=== PATIENT | female | born 1960 | race Caucasian/White ===

== ENCOUNTER → 2016-08-12 | Outpatient (CLI) | payer BC ==
--- NOTE | 2016-08-15 08:31 | MM ---
Reason for exam: clinical finding. Last mammogram was performed 3 years and 4 months ago. History: Family history of breast cancer in grandmother. Indicated problem(s): lump or thickening in the left breast. Physical Findings: Nurse did not find any significant physical abnormalities on exam. MG Diagnostic Mammo w CAD GARRY Bilateral CC and MLO view(s) were taken. Prior study comparison: April 16, 2013, CAD bilateral diagnostic mammogram. January 26, 2011, bilateral digital screening mammo w/CAD. The breast tissue is heterogeneously dense. This may lower the sensitivity of mammography. There is chronic nodularity in the left breast. No significant new findings when compared with previous films. These results were verbally communicated with the patient and result sheet given to the patient on 08/12/16. ASSESSMENT: Benign, BI-RAD 2 RECOMMENDATION: Routine screening mammogram of both breasts in 1 year. Manage patient on a clinical basis.
== END | disposition home or self-care (01) ==
LOC: RADMAMWWP 13:19
PROVIDERS: ATTEND Family Medicine
DX: N63 Unspecified lump in breast (principal)

== ENCOUNTER → 2022-12-22 | Outpatient (CLI) | payer BC ==
--- NOTE | 2022-12-22 15:42 | XR ---
EXAMINATION TYPE: XR clavicle LT DATE OF EXAM: 12/22/2022 3:27 PM INDICATION: Patient age:Female; 62 years old; Reason for study: M25.512; [facility]. COMPARISON: Chest radiograph 10/30/2013 TECHNIQUE: AP and cephalic tilt views were obtained of the left clavicle. FINDINGS: No evidence of acute or chronic osseous pathology, joint dislocation or soft tissue swelling. IMPRESSION: Normal left clavicle.
== END | disposition home or self-care (01) ==
LOC: RADXRMAIN 15:16
PROVIDERS: ATTEND Nurse Practitioner Family
DX: M25.512 Pain in left shoulder (principal)

== ENCOUNTER 2024-11-23 11:50 | Observation (INO) | payer BC, MEDICARE ==
--- NOTE | 2024-11-23 12:12 | ED ---
General Adult HPI - General Chief complaint: Neuro Symptoms/Deficit Stated complaint: confusion Time Seen by Provider: 11/23/24 12:00 Source: patient, family, RN notes reviewed Mode of arrival: wheelchair Limitations: no limitations - History of Present Illness Initial comments: Patient is a 64-year-old female presenting to the emergency department with concern for confusion. Onset was around a half an hour prior to arrival. Patient was doing fine prior to that. Patient arrives with family. Patient suddenly became confused, not knowing what day or week it was. Patient did not recall that they had a friend coming over or doing other activities this morning. Patient states she does not recall waking up this morning. Patient does not recall why she takes Eliquis or if she even took it today. Family states she takes this for A-fib. No slurred speech. No weakness. - Related Data Home Medications Medication Instructions Recorded Confirmed Levothyroxine Sodium [Synthroid] 100 mcg PO DAILY 02/11/14 11/23/24 Apixaban [Eliquis] 5 mg PO BID 11/23/24 11/23/24 Atorvastatin [Lipitor] 20 mg PO DAILY 11/23/24 11/23/24 Cider Vinegar [Apple Cider Vinegar] 300 mg PO DAILY 11/23/24 11/23/24 Echinacea(Unknown Dose) 1 cap PO DAILY 11/23/24 11/23/24 Magnesium(Unknown Dose) 1 tab PO DAILY 11/23/24 11/23/24 Meloxicam [Mobic] 15 mg PO DAILY PRN 11/23/24 11/23/24 Tart Mckenzie(Unknown Dose) 1 tab PO DAILY 11/23/24 11/23/24 Vitamin C(Unknown Dose) 1 tab PO DAILY 11/23/24 11/23/24 Allergies Allergy/AdvReac Type Severity Reaction Status Date / Time Penicillins Allergy Dyspnea Verified 11/23/24 13:20 Review of Systems ROS Statement: Those systems with pertinent positive or pertinent negative responses have been documented in the HPI. ROS Other: All systems not noted in ROS Statement are negative. Constitutional: Denies: fever Eyes: Denies: eye pain ENT: Denies: ear pain Respiratory: Denies: dyspnea Cardiovascular: Denies: chest pain Neurological: Reports: as per HPI, confusion. Denies: headache, weakness Past Medical History Past Medical History: Asthma, GERD/Reflux, GI Bleed, Hypertension Additional Past Medical History / Comment(s): HTN intermittent, Blood in stools History of Any Multi-Drug Resistant Organisms: None Reported Past Surgical History: Hysterectomy Past Anesthesia/Blood Transfusion Reactions: No Reported Reaction Past Alcohol Use History: Occasional Past Drug Use History: None Reported General Exam Limitations: no limitations General appearance: alert, in no apparent distress Head exam: Present: normocephalic Eye exam: Present: normal appearance, PERRL, EOMI ENT exam: Present: normal oropharynx Neck exam: Present: normal inspection Respiratory exam: Present: normal lung sounds bilaterally Cardiovascular Exam: Present: regular rate, normal rhythm GI/Abdominal exam: Present: soft. Absent: tenderness Extremities exam: Present: normal inspection. Absent: pedal edema, calf tenderness Neurological exam: Present: alert, CN II-XII intact. Absent: motor sensory deficit Expanded Neurological exam: Present: protecting the airway Patient oriented to: Present: person, place. Absent: time Speech: Present: fluid speech Cranial nerves: EOM's Intact: Normal Sensory exam: Upper Extremity Light Touch: Normal, Lower Extremity Light Touch: Normal Motor strength exam: RUE: 5, LUE: 5, RLE: 5, LLE: 5 Eye Response: (4) open spontaneously Motor Response: (6) obeys commands Verbal Response: (4) confused conversation Psychiatric exam: Present: normal affect, normal mood Skin exam: Present: normal color Course Vital Signs 11/23/24 11:51 Temperature 97.9 F Pulse Rate 65 Respiratory 17 Rate Blood Pressure 148/88 O2 Sat by Pulse 96 Oximetry EKG Findings - EKG Results: EKG: interpreted by ERMD (Precordial and inferior Q waves. Left axis. Nonspecific T wave), sinus rhythm Medical Decision Making - Medical Decision Making Was pt. sent in by a medical professional or institution (, PA, PRINTING PLATE SETTER, urgent care, hospital, or [facility]...) When possible be specific @ -No Did you speak to anyone other than the patient for history (EMS, parent, family, police, friend...)? What history was obtained from this source @ - is present and provides majority of history as patient is unable to Did you review nursing and triage notes (agree or disagree)? Why? @ -I reviewed and agree with nursing and triage notes Were old charts reviewed (outside hosp., previous admission, EMS record, old EKG, old radiological studies, urgent care reports/EKG's, [facility] records)? Report findings @ -No old charts were reviewed Differential Diagnosis (chest pain, altered mental status, abdominal pain women, abdominal pain men, vaginal bleeding, weakness, fever, dyspnea, syncope, headache, dizziness, GI bleed, back pain, seizure, CVA, palpatations, mental health, musculoskeletal)? @ -Differential Altered Mental Status: Hypoglycemia, DKA, hypercapnia, ETOH, overdose, CO poisoning, trauma, myxedema coma, HTN encephalopathy, infection, encephalitis, psychosis, intercranial hemorrhage, hepatic encephalopathy, meningitis, CVA, this is not meant to be an all-inclusive list EKG interpreted by me (3pts min.). @ -As above X-rays interpreted by me (1pt min.). @ -Chest x-ray shows no acute process CT interpreted by me (1pt min.). @ -CT scan of the brain without acute abnormality U/S interpreted by me (1pt. min.). @ -None done What testing was considered but not performed or refused? (CT, X-rays, U/S, labs)? Why? @ -None What meds were considered but not given or refused? Why? @ -Considered tenecteplase however patient did not have a clear-cut diagnosis of stroke. In addition patient is on Eliquis Did you discuss the management of the patient with other professionals (professionals i.e. , PA, PRINTING PLATE SETTER, lab, RT, psych nurse, health social work professor, business continuity coordinator, teacher, first officer and flight instructor, counter caser)? Give summary @ -No Was smoking cessation discussed for >3mins.? @ -No Was critical care preformed (if so, how long)? @ -No Were there social determinants of health that impacted care today? How? (Homelessness, low income, unemployed, alcoholism, drug addiction, transportation, low edu. Level, literacy, decrease access to med. care, prison, rehab)? @ -No Was there de-escalation of care discussed even if they declined (Discuss DNR or withdrawal of care, Hospice)? DNR status @ -No What co-morbidities impacted this encounter? (DM, HTN, Smoking, COPD, CAD, Canc er, CVA, ARF, Chemo, Hep., AIDS, mental health diagnosis, sleep apnea, morbid obesity)? @ -History of A-fib Was patient admitted / discharged? Hospital course, mention meds given and route, prescriptions, significant lab abnormalities, going to OR and other pertinent info. @ -Patient presents with sudden onset confusion and amnesia. Upon reevaluation symptoms have resolved. Patient does not recall anything during this episode and does not recall seeing me earlier. Patient will be admitted for neuroconsultation. There is concern for TIA versus transient global amnesia. Patient and family updated. Admission orders written. Undiagnosed new problem with uncertain prognosis? @ -No Drug Therapy requiring intensive monitoring for toxicity (Heparin, Nitro, Insulin, Cardizem)? @ -No Were any procedures done? @ -No Diagnosis/symptom? @ -Altered mental status Acute, or Chronic, or Acute on Chronic? @ -Acute Uncomplicated (without systemic symptoms) or Complicated (systemic symptoms)? @ -Default Side effects of treatment? @ -No Exacerbation, Progression, or Severe Exacerbation? @ -No Poses a threat to life or bodily function? How? (Chest pain, USA, NC, pneumonia, PE, COPD, DKA, ARF, appy, cholecystitis, CVA, Diverticulitis, Homicidal, Suicidal, threat to staff... and all critical care pts) @ -No - Lab Data Result diagrams: 11/23/24 12:24 11/23/24 12:24 Lab Results 11/23/24 11/23/24 11/23/24 Range/Units 12:24 12:24 12:29 WBC 5.74 (4.50-10.00) 10*3/uL RBC 4.82 (4.10-5.20) 10*6/uL Hgb 15.4 H (12.0-15.0) g/dL Hct 43.9 (37.2-46.3) % MCV 91.1 (80.0-97.0) fL MCH 32.0 (27.0-32.0) pg MCHC 35.1 (32.0-37.0) g/dL Plt Count 250 (140-440) 10*3/uL MPV 10.2 (9.5-12.2) fL Immature Gran % (Auto) 0.2 % Neutrophils % 63.2 % Lymphocytes % 24.4 % Monocytes % 9.4 % Eosinophils % 2.3 % Basophils % 0.5 % Immature Gran # 0.01 (0.00-0.04) 10*3/uL Neutrophils # 3.63 (1.80-7.70) 10*3/uL Lymphocytes # 1.40 (0.90-5.00) 10*3/uL Monocytes # 0.54 (0.20-1.00) 10*3/uL Eosinophils # 0.13 (0.04-0.35) 10*3/uL Basophils # 0.03 (0.00-0.10) 10*3/uL PT (10.0-12.5) sec INR (<1.2) APTT (22.0-30.0) sec Sodium 138 (137-145) mmol/L Potassium 4.3 (3.5-5.1) mmol/L Chloride 104 (98-107) mmol/L Carbon Dioxide 24 (22-30) mmol/L Anion Gap 10 mmol/L BUN 16 (7-17) mg/dL Creatinine 0.83 (0.52-1.04) mg/dL Est GFR (CKD-EPI)AfAm 86 (>60 ml/min/1.73 sqM) Est GFR (CKD-EPI)NonAf 75 (>60 ml/min/1.73 sqM) Glucose 94 (74-99) mg/dL POC Glucose (mg/dL) 92 (70-110) mg/dL POC Glu Medical Sales Representative ID ESAU JAMA Calcium 9.6 (8.4-10.2) mg/dL Total Bilirubin 1.1 (0.2-1.3) mg/dL AST 22 (14-36) U/L ALT 19 (4-34) U/L Alkaline Phosphatase 69 (38-126) U/L Total Protein 7.0 (6.3-8.2) g/dL Albumin 4.3 (3.5-5.0) g/dL Urine Opiates Screen (NotDetected) Ur Oxycodone Screen (NotDetected) Urine Methadone Screen (NotDetected) Ur Barbiturates Screen (NotDetected) U Tricyclic Antidepress (NotDetected) Ur Phencyclidine Scrn (NotDetected) Ur Amphetamines Screen (NotDetected) U Methamphetamines Scrn (NotDetected) U Benzodiazepines Scrn (NotDetected) Urine Cocaine Screen (NotDetected) U Marijuana (THC) Screen (NotDetected) 11/23/24 11/23/24 Range/Units 12:43 12:54 WBC (4.50-10.00) 10*3/uL RBC (4.10-5.20) 10*6/uL Hgb (12.0-15.0) g/dL Hct (37.2-46.3) % MCV (80.0-97.0) fL MCH (27.0-32.0) pg MCHC (32.0-37.0) g/dL Plt Count (140-440) 10*3/uL MPV (9.5-12.2) fL Immature Gran % (Auto) % Neutrophils % % Lymphocytes % % Monocytes % % Eosinophils % % Basophils % % Immature Gran # (0.00-0.04) 10*3/uL Neutrophils # (1.80-7.70) 10*3/uL Lymphocytes # (0.90-5.00) 10*3/uL Monocytes # (0.20-1.00) 10*3/uL Eosinophils # (0.04-0.35) 10*3/uL Basophils # (0.00-0.10) 10*3/uL PT 10.6 (10.0-12.5) sec INR 0.9 (<1.2) APTT 28.0 (22.0-30.0) sec Sodium (137-145) mmol/L Potassium (3.5-5.1) mmol/L Chloride (98-107) mmol/L Carbon Dioxide (22-30) mmol/L Anion Gap mmol/L BUN (7-17) mg/dL Creatinine (0.52-1.04) mg/dL Est GFR (CKD-EPI)AfAm (>60 ml/min/1.73 sqM) Est GFR (CKD-EPI)NonAf (>60 ml/min/1.73 sqM) Glucose (74-99) mg/dL POC Glucose (mg/dL) (70-110) mg/dL POC Glu Medical Sales Representative ID Calcium (8.4-10.2) mg/dL Total Bilirubin (0.2-1.3) mg/dL AST (14-36) U/L ALT (4-34) U/L Alkaline Phosphatase (38-126) U/L Total Protein (6.3-8.2) g/dL Albumin (3.5-5.0) g/dL Urine Opiates Screen Not Detected (NotDetected) Ur Oxycodone Screen Not Detected (NotDetected) Urine Methadone Screen Not Detected (NotDetected) Ur Barbiturates Screen Not Detected (NotDetected) U Tricyclic Antidepress Not Detected (NotDetected) Ur Phencyclidine Scrn Not Detected (NotDetected) Ur Amphetamines Screen Not Detected (NotDetected) U Methamphetamines Scrn Not Detected (NotDetected) U Benzodiazepines Scrn Not Detected (NotDetected) Urine Cocaine Screen Not Detected (NotDetected) U Marijuana (THC) Screen Not Detected (NotDetected) Disposition Clinical Impression: Altered mental status Disposition: ADMITTED IP TO THIS HOSP Is patient prescribed a controlled substance at d/c from ED?: No Referrals: Vern Lai DO [Primary Care Provider] - 1-2 days Time of Disposition: 13:25
[2024-11-23 12:30] LABS: Glucose,Whole Blood 92 mg/dL (70-110)
[2024-11-23 12:36] LABS: Basophils # (A) 0.03 10*3/uL (0.00-0.10); Basophils % (A) 0.5 %; Eosinophils # (A) 0.13 10*3/uL (0.04-0.35); Eosinophils % (A) 2.3 %; HCT 43.9 % (37.2-46.3); HGB 15.4 g/dL (12.0-15.0); Lymphocytes % (A) 24.4 %; MCHC 35.1 g/dL (32.0-37.0); MCV 91.1 fL (80.0-97.0); Mean Platelet Volume 10.2 fL (9.5-12.2); Monocytes # (A) 0.54 10*3/uL (0.20-1.00); Monocytes % (A) 9.4 %; Neutrophils # (A) 3.63 10*3/uL (1.80-7.70); Neutrophils % (A) 63.2 %; Platelet Count 250 10*3/uL (140-440); RBC 4.82 10*6/uL (4.10-5.20); RDW 12.2 % (11.5-14.5); WBC 5.74 10*3/uL (4.50-10.00)
[2024-11-23 12:45] LABS: African American GFR (CKD) 86 (>60 ml/min/1.73 sqM); Anion Gap 10 mmol/L; Blood Urea Nitrogen 16 mg/dL (7-17); Carbon Dioxide 24 mmol/L (22-30); Chloride 104 mmol/L (98-107); Glucose 94 mg/dL (74-99); Potassium 4.3 mmol/L (3.5-5.1); Sodium 138 mmol/L (137-145)
[2024-11-23 12:46] LABS: ALT 19 U/L (4-34); AST 22 U/L (14-36); Albumin 4.3 g/dL (3.5-5.0); Alkaline Phosphatase 69 U/L (38-126); Calcium 9.6 mg/dL (8.4-10.2); Non-African American GFR(CKD) 75 (>60 ml/min/1.73 sqM); Total Bilirubin 1.1 mg/dL (0.2-1.3)
--- NOTE | 2024-11-23 12:57 | XR ---
EXAMINATION TYPE: XR chest 2V DATE OF EXAM: 11/23/2024 12:52 PM COMPARISON: Chest radiographs from 10/30/2013. CLINICAL INDICATION: Female, 64 years old with history of altered mental status; [facility] TECHNIQUE: XR chest 2V Frontal and lateral views of the chest. FINDINGS: Lungs/Pleura: There is no evidence of pleural effusion, focal consolidation, or pneumothorax. Pulmonary vascularity: Unremarkable. Heart/mediastinum: Cardiomediastinal silhouette is unremarkable. Musculoskeletal: No acute osseous pathology. Other findings: None IMPRESSION: No acute cardiopulmonary disease/process. [facility], , 11/23/2024 12:55 PM
--- NOTE | 2024-11-23 12:57 | CT ---
EXAMINATION TYPE: CT brain wo con DATE OF EXAM: 11/23/2024 12:48 PM COMPARISON: None. CLINICAL INDICATION: Female, 64 years old with history of Altered mental status, CONFUSION TECHNIQUE: Brain: Axial CT images of the brain were obtained with coronal and sagittal reformats created and rev iewed. Contrast used: None. Oral contrast used: None. CT DLP: 1156.8 mGycm, Automated exposure control for dose reduction was used. FINDINGS: Brain: Extra-axial spaces: No abnormal extra-axial fluid collections. Ventricular system: Within normal limits Cerebral parenchyma: No acute intraparenchymal hemorrhage or mass effect. The michael-white junction is well differentiated. Cerebellum: Unremarkable. Mass effect: No evidence of midline shift. Intracranial vasculature: unremarkable Soft tissues: Normal. Calvarium/osseous structures: No depressed skull fracture. Paranasal sinuses and mastoid air cells: Mild scattered paranasal sinus disease. Visualized orbits: Orbital contents are intact. IMPRESSION: No acute intracranial process. [facility], , 11/23/2024 12:54 PM
[2024-11-23 13:12] LABS: Amphetamine Screen,Urine Not Detected (NotDetected); Barbiturate Screen,Urine Not Detected (NotDetected); Benzodiazepines Screen,Urine Not Detected (NotDetected); Cocaine Screen,Urine Not Detected (NotDetected); Methadone Screen, Urine Not Detected (NotDetected); Opiate Screen,Urine Not Detected (NotDetected); Oxycodone Screen, Urine Not Detected (NotDetected); Phencyclidine Screen,Urine Not Detected (NotDetected); Tricyclic Antidepressant,Urine Not Detected (NotDetected); Urn Cannabinoid Scrn Not Detected (NotDetected)
[2024-11-23 13:12] LABS: INR 0.9 (<1.2); Prothrombin Time 10.6 sec (10.0-12.5)
[2024-11-23] MEDS: ASPIRIN 325 MG TAB PO STA (13:35)
[2024-11-23] MEDS: SODIUM CHLORIDE 0.9% 1,000 ML IV SCH (13:35)
--- NOTE | 2024-11-23 15:33 | US ---
EXAMINATION TYPE: US carotid duplex BILAT DATE OF EXAM: 11/23/2024 COMPARISON: NONE CLINICAL INDICATION: Female, 64 years old with history of Stenosis; TIA Additional History: .... TECHNIQUE: Grayscale, color Doppler and spectral Doppler evaluation of the bilateral carotid systems and vertebral arteries. Indirect Doppler criteria was utilized. FINDINGS: EXAM MEASUREMENTS: RIGHT: Peak Systolic Velocity (PSV) cm/sec ----- Right CCA: 74.1 ----- Right ICA: 101 ----- Right ECA: 92.9 ICA/CCA ratio: 1.4 RIGHT: End Diastole cm/sec ----- Right CCA: 18.2 ----- Right ICA: 32.5 ----- Right ECA: 13 LEFT: Peak Systolic Velocity (PSV) cm/sec ----- Left CCA: 88.3 ----- Left ICA: 91.6 ----- Left ECA: 105 ICA/CCA ratio: 1.0 LEFT: End Diastole cm/sec ----- Left CCA: 20.8 ----- Left ICA: 33.1 ----- Left ECA: 14.9 VERTEBRALS (direction of flow): Right Vertebral: Antegrade Left Vertebral: Antegrade Rhythm: Normal COMPTOMETER OPERATOR NOTES: No significant stenosis seen Color Doppler imaging shows patency with blood flow throughout the carotid artery. Spectral waveforms are within normal limits. IMPRESSION: Right: No hemodynamically significant stenosis. Left: No hemodynamically significant stenosis. Criteria for Assigning % of Stenosis / Diameter reduction (Estimation based on the indirect measurements of the internal carotid artery velocities (ICA PSV). 1. Normal (no stenosis)=ICA PSV < 180 cm/s: ratio < 2.0: ICA EDV<40 cm/s. 2. Less than 50% stenosis=ICA PSV < 180 cm/s: ratio < 2.0: ICA EDV<40 cm/s. 3. 50 to 69% stenosis=ICA PSV of 180 to 230 cm/s: ration 2.0 ? 4.0: ICA EDV 40-100 cm/s. PSV 125-180 cm/sec and ICA/CCA PSV Ratio ? 2.0 is also consistent with 50-69% stenosis 4. Greater than 70% stenosis to near occlusion= ICA PSV > 230 cm/s: ratio > 4.0: ICA EDV > 100 cm/s. 5. Near occlusion= ICA PSV velocities may be low or undetectable: variable ratio and ICA EDV. 6. Total occlusion=unable to detect flow. [facility], , 11/23/2024 3:31 PM
[2024-11-23] MEDS: APIXABAN 5 MG TAB PO SCH (21:13)
[2024-11-24 06:08] LABS: Glucose,Whole Blood 96 mg/dL (70-110)
[2024-11-24] MEDS: ASCORBIC ACID 500 MG TAB PO SCH (08:26)
[2024-11-24] MEDS: MAGNESIUM OXIDE 400 MG TAB PO SCH (08:26)
[2024-11-24] MEDS: LEVOTHYROXINE 100 MCG TAB PO SCH (08:26)
[2024-11-24] MEDS: ATORVASTATIN 20 MG TAB PO SCH (08:26)
[2024-11-24] MEDS ORDERED: NON FORMULARY DRUG (Cider Vinegar [Apple Cider Vinegar] 300 MG Tablet) PO SCH (09:00)
[2024-11-24 09:56] LABS: Basophils # (A) 0.05 X 10*3/uL (0.00-0.10); Basophils % (A) 0.7 %; HGB 13.3 g/dL (12.0-15.0); Lymphocytes # (A) 2.37 X 10*3/uL (0.90-5.00); Lymphocytes % (A) 35.3 %; MCH 30.5 pg (27.0-32.0); MCHC 32.4 g/dL (32.0-37.0); Mean Platelet Volume 10.9 FL (9.5-12.2); Monocytes # (A) 0.61 X 10*3/uL (0.20-1.00); Monocytes % (A) 9.1 %; NRBC Per 100 WBC 0 X 10*3/uL (0.00-0.01); Neutrophils # (A) 3.48 X 10*3/uL (1.80-7.70); Neutrophils % (A) 51.8 %; Platelet Count 233 X 10*3/uL (140-440); RBC 4.36 X 10*6/uL (4.10-5.20); RDW 12.4 % (11.5-14.5); WBC 6.72 X 10*3/uL (4.50-10.00)
[2024-11-24 10:32] LABS: BUN/Creat Ratio 16.11 Ratio (12.00-20.00); Blood Urea Nitrogen 14.5 mg/dL (9.0-27.0); Calcium 8.5 mg/dL (8.7-10.3); Carbon Dioxide 23.8 mmol/L (21.6-31.8); Chloride 107 mmol/L (96-109); Glucose 93 mg/dL (70-110); Potassium 4.2 mmol/L (3.5-5.5); Sodium 141 mmol/L (135-145); VLDL Calculation 15.32 mg/dL (5.00-40.00)
[2024-11-24] MEDS: ASPIRIN 325 MG TAB PO SCH (11:16)
--- NOTE | 2024-11-24 12:41 | P.HPIM ---
History of Present Illness H&P Date: 11/23/24 Chief Complaint: Confusion 64-year-old female presenting to the emergency department with concern for confusion. Onset was around a half an hour prior to arrival. Patient was doing fine prior to that. Patient arrives with family. Patient suddenly became confused, not knowing what day or week it was. Patient did not recall that they had a friend coming over or doing other activities this morning. Patient states she does not recall waking up this morning. Patient does not recall why she takes Eliquis or if she even took it today. Family states she takes this for A- fib. No slurred speech. No weakness. CT of the head completed in ED is negative for any acute intracranial abnormality EKG shows normal sinus rhythm Chest x-ray is negative for any acute pulmonary process Blood work reveals WBC 5.7, hemoglobin of 15.4 and platelet count of 250, sodium 138, potassium 4.3, BUN/creatinine of 16/0.83; urine drug screen is negative Patient is being admitted for further neurology evaluation Review of Systems REVIEW OF SYSTEMS: CONSTITUTIONAL: No fever, no malaise, no fatigue. HEENT: No recent visual problems or hearing problems. Denied any sore throat. CARDIOVASCULAR: No chest pain, orthopnea, PND, no palpitations, no syncope. PULMONARY: No shortness of breath, no cough, no hemoptysis. GASTROINTESTINAL: No diarrhea, no nausea, no vomiting, no abdominal pain. NEUROLOGICAL: No headaches, no weakness, no numbness. HEMATOLOGICAL: Denies any bleeding or petechiae. GENITOURINARY: Denies any burning micturition, frequency, or urgency. MUSCULOSKELETAL/RHEUMATOLOGICAL: Denies any joint pain, swelling, or any muscle pain. ENDOCRINE: Denies any polyuria or polydipsia. The rest of the 14-point review of systems is negative. Past Medical History Past Medical History: Asthma, GERD/Reflux, GI Bleed, Hypertension Additional Past Medical History / Comment(s): HTN intermittent, Blood in stools History of Any Multi-Drug Resistant Organisms: None Reported Past Surgical History: Hysterectomy Past Anesthesia/Blood Transfusion Reactions: No Reported Reaction Past Alcohol Use History: Occasional Past Drug Use History: None Reported Medications and Allergies Home Medications Medication Instructions Recorded Confirmed Type Levothyroxine Sodium [Synthroid] 100 mcg PO DAILY 02/11/14 11/23/24 History Apixaban [Eliquis] 5 mg PO BID 11/23/24 11/23/24 History Atorvastatin [Lipitor] 20 mg PO DAILY 11/23/24 11/23/24 History Cider Vinegar [Apple Cider Vinegar] 300 mg PO DAILY 11/23/24 11/23/24 History Echinacea(Unknown Dose) 1 cap PO DAILY 11/23/24 11/23/24 History Magnesium(Unknown Dose) 1 tab PO DAILY 11/23/24 11/23/24 History Meloxicam [Mobic] 15 mg PO DAILY PRN 11/23/24 11/23/24 History Tart Mckenzie(Unknown Dose) 1 tab PO DAILY 11/23/24 11/23/24 History Vitamin C(Unknown Dose) 1 tab PO DAILY 11/23/24 11/23/24 History Allergies Allergy/AdvReac Type Severity Reaction Status Date / Time Penicillins Allergy Dyspnea Verified 11/23/24 13:20 Physical Exam Vitals: Vital Signs Temp Pulse Resp BP Pulse Ox 11/23/24 15:17 57 L 18 142/82 96 11/23/24 13:41 64 18 137/97 96 11/23/24 11:51 97.9 F 65 17 148/88 96 Intake and Output 11/23/24 11/23/24 11/23/24 06:59 14:59 22:59 Other: Weight 86.183 kg General appearance: alert, in no apparent distress Head exam: Present: normocephalic Eye exam: Present: normal appearance, PERRL, EOMI ENT exam: Present: normal oropharynx Neck exam: Present: normal inspection Respiratory exam: Present: normal lung sounds bilaterally Cardiovascular Exam: Present: regular rate, normal rhythm GI/Abdominal exam: Present: soft. Absent: tenderness Extremities exam: Present: normal inspection. Absent: pedal edema, calf tenderness Neurological exam: Present: alert, CN II-XII intact. Absent: motor sensory deficit Speech: Present: fluid speech Sensory exam: Upper Extremity Light Touch: Normal, Lower Extremity Light Touch: Normal Motor strength exam: RUE: 5, LUE: 5, RLE: 5, LLE: 5 Psychiatric exam: Present: normal affect, normal mood Skin exam: Present: normal color Results CBC & Chem 7: 11/24/24 03:24 11/24/24 03:24 Labs: Abnormal Lab Results - Last 24 Hours (Table) 11/23/24 Range/Units 12:24 Hgb 15.4 H (12.0-15.0) g/dL Assessment and Plan Assessment: 1. Altered mental status; likely transient global amnesia Patient does not have any recollection of the incident; according to family her symptoms resolved upon arrival to ED; confusion started about half hour prior to coming to ER - CT of the brain completed in ED is negative for acute intracranial abnormality -- Blood work is unremarkable - We will order 2D echo and bilateral carotid Doppler - Neurology is consulted 2. History of atrial fibrillation; currently in normal sinus rhythm; patient takes Eliquis for anticoagulation not on any rate controlling; medication 3. Hyperlipidemia; Lipitor 20 mg daily 4. Hypothyroidism; levothyroxine 100 mcg daily 5. DJD; patient takes meloxicam 15 mg daily DVT prophylaxis; SCDs/Lovenox CODE STATUS; full code
--- NOTE | 2024-11-24 12:44 | P.PN ---
Subjective Progress Note Date: 11/24/24 64-year-old female presenting to the emergency department with concern for confusion. Onset was around a half an hour prior to arrival. Patient was doing fine prior to that. Patient arrives with family. Patient suddenly became confused, not knowing what day or week it was. Patient did not recall that they had a friend coming over or doing other activities this morning. Patient states she does not recall waking up this morning. Patient does not recall why she takes Eliquis or if she even took it today. Family states she takes this for A- fib. No slurred speech. No weakness. CT of the head completed in ED is negative for any acute intracranial abnormality EKG shows normal sinus rhythm Chest x-ray is negative for any acute pulmonary process Blood work reveals WBC 5.7, hemoglobin of 15.4 and platelet count of 250, sodium 138, potassium 4.3, BUN/creatinine of 16/0.83; urine drug screen is negative Patient is being admitted for further neurology evaluation - Blood work is repeated and remains unremarkable - Bilateral carotid Doppler studies completed; no significant carotid stenosis; 2D echo is ordered and pending - Await neurology evaluation and further recommendation Objective - Vital Signs Vital signs: Vital Signs Temp 98.0 F 11/24/24 07:10 Pulse 52 L 11/24/24 07:10 Resp 14 11/24/24 07:10 BP 136/76 11/24/24 07:10 Pulse Ox 95 11/24/24 07:10 FiO2 Intake & Output 11/23/24 11/24/24 11/24/24 18:59 06:59 18:59 Output Total 400 Balance -400 Weight 86.183 kg Output: Urine 400 Other: # Voids 2 # Bowel Movements 1 - Exam General appearance: alert, in no apparent distress Head exam: Present: normocephalic Eye exam: Present: normal appearance, PERRL, EOMI ENT exam: Present: normal oropharynx Neck exam: Present: normal inspection Respiratory exam: Present: normal lung sounds bilaterally Cardiovascular Exam: Present: regular rate, normal rhythm GI/Abdominal exam: Present: soft. Absent: tenderness Extremities exam: Present: normal inspection. Absent: pedal edema, calf tenderness Neurological exam: Present: alert, CN II-XII intact. Absent: motor sensory deficit Psychiatric exam: Present: normal affect, normal mood Skin exam: Present: normal color - Labs CBC & Chem 7: 11/24/24 03:24 11/24/24 03:24 Labs: Abnormal Lab Results - Last 24 Hours (Table) 11/23/24 Range/Units 12:24 Hgb 15.4 H (12.0-15.0) g/dL Assessment and Plan Assessment: 1. Altered mental status; likely transient global amnesia Patient does not have any recollection of the incident; according to family her symptoms resolved upon arrival to ED; confusion started about half hour prior to coming to ER - CT of the brain completed in ED is negative for acute intracranial abnormality -- Blood work is unremarkable - We will order 2D echo and bilateral carotid Doppler - Neurology is consulted 2. History of atrial fibrillation; currently in normal sinus rhythm; patient takes Eliquis for anticoagulation not on any rate controlling; medication 3. Hyperlipidemia; Lipitor 20 mg daily 4. Hypothyroidism; levothyroxine 100 mcg daily 5. DJD; patient takes meloxicam 15 mg daily DVT prophylaxis; SCDs/Lovenox CODE STATUS; full code
--- NOTE | 2024-11-24 14:28 | P.CNNES ---
History of Present Illness Consult date: 11/24/24 Reason for Consult: TIA versus transient global amnesia History of Present Illness: The patient is a 64-year-old female who was seen in neurologic consultation on November 24, 2024, in collaboration with Anu Bowman, via teleneurology. History is obtained from review of the chart, the patient and her who is present at the bedside at the time of the evaluation. The patient reports that she and her were working out in the morning, yesterday. She says that she got off of the elliptical machine and then does not recall anything else until about 5 PM. Her reports that she was very confused. Her speech however was clear. There is no facial droop. There is no lateralizing weakness. The patient was unable to recall what they were doing, where they were going, the plan was for the rest of the day. The patient reportedly did recognize her . The reports that because of this confusion, he brought her into the emergency department. The patient does have a history of TIA. She says with these previous TIA's, she had no memory loss. She says she recalls every part of those episodes. The patient has no history of events such as this. The patient does have a past medical history of atrial fibrillation, for which she takes Eliquis. The patient reports occasionally missing some doses. There is a recent medication start. At baseline, the patient has no memory deficits. The patient reports that her memory returned, yesterday afternoon at approximately 5 PM. She does not recall going to the emergency department or arriving at the emergency department. She was aware that she was in the hospital when her memory returned. In the emergency department, CT scan of the brain was performed. There was no reported evidence of acute hemorrhage or infarct. Past Medical History Past Medical History: Asthma, GERD/Reflux, GI Bleed, Hypertension Additional Past Medical History / Comment(s): HTN intermittent, Blood in stools History of Any Multi-Drug Resistant Organisms: None Reported Past Surgical History: Hysterectomy Past Anesthesia/Blood Transfusion Reactions: No Reported Reaction Past Alcohol Use History: Occasional Past Drug Use History: None Reported Medications and Allergies Home Medications Medication Instructions Recorded Confirmed Type Levothyroxine Sodium [Synthroid] 100 mcg PO DAILY 02/11/14 11/23/24 History Apixaban [Eliquis] 5 mg PO BID 11/23/24 11/23/24 History Atorvastatin [Lipitor] 20 mg PO DAILY 11/23/24 11/23/24 History Cider Vinegar [Apple Cider Vinegar] 300 mg PO DAILY 11/23/24 11/23/24 History Echinacea(Unknown Dose) 1 cap PO DAILY 11/23/24 11/23/24 History Magnesium(Unknown Dose) 1 tab PO DAILY 11/23/24 11/23/24 History Meloxicam [Mobic] 15 mg PO DAILY PRN 11/23/24 11/23/24 History Tart Mckenzie(Unknown Dose) 1 tab PO DAILY 11/23/24 11/23/24 History Vitamin C(Unknown Dose) 1 tab PO DAILY 11/23/24 11/23/24 History Allergies Allergy/AdvReac Type Severity Reaction Status Date / Time Penicillins Allergy Dyspnea Verified 11/23/24 13:20 Physical Examination - Vital Signs Vital Signs: Vital Signs Temp Pulse Pulse Resp BP BP BP 11/24/24 07:10 98.0 F 52 L 14 136/76 11/24/24 02:00 97.8 F 81 17 126/83 11/23/24 20:35 97.8 F 83 17 119/74 11/23/24 20:16 77 18 127/61 11/23/24 15:17 57 L 18 142/82 11/23/24 13:41 64 18 137/97 11/23/24 11:51 97.9 F 65 17 148/88 Pulse Ox 11/24/24 07:10 95 11/24/24 02:00 94 L 11/23/24 20:35 94 L 11/23/24 20:16 93 L 11/23/24 15:17 96 11/23/24 13:41 96 11/23/24 11:51 96 Intake and Output 11/23/24 11/24/24 11/24/24 22:59 06:59 14:59 Output Total 400 Balance -400 Output: Urine 400 Other: # Voids 2 # Bowel Movements 1 General: Patient is reclining in the bed. She is well-nourished, well-developed and in no acute distress. HEENT: Head is atraumatic, normocephalic. Fundus not visualized. There is no scleral icterus. Mucous membranes are moist. Neck: Supple without carotid bruits. The patient is able to easily bend her chin to her chest. Heart: Regular rate rhythm Lungs: Clear to auscultation Extremities: Without edema Neurological examination Mental status: Patient is awake, alert and oriented x 3. Speech is clear. There is no dysarthria or aphasia. Cranial nerves: Pupils are equal at 2 mm and reactive. Visual masterson are full to confrontation. Extraocular movements are intact. There is no nystagmus. Facial sensation is intact. There is no facial asymmetry. Hearing is grossly intact. Uvula and palate are midline. Shoulder shrug is symmetric. Tongue protrudes midline. Motor: Strength is 5/5 throughout. Coordination: [id number], rapid alternating movements are intact. There is no pronator drift. [id number] testing is intact. Sensation: Grossly intact to light touch throughout. There is no extinction with double simultaneous stimulation. Deep tendon reflexes: 2+/4+ throughout. Plantar responses are flexor bilaterally. Gait: Not assessed Results - Laboratory Findings CBC and BMP: 11/24/24 03:24 11/24/24 03:24 Abnormal Lab Findings: Abnormal Labs 11/23/24 12:24 Hgb 15.4 H Assessment and Plan Assessment: 1. The patient is a very pleasant 64-year-old female who experienced an episode of transient global amnesia. There were no focal or lateralizing deficits noted by her while she was confused. Patient had a definitive time of loss of memory. 2. History of hypertension 3. History of TIA 4. History of atrial fibrillation Plan: 1. Stroke/TIA workup is not needed as patient did not suffer a TIA. 2. The patient is actually neurologically stable for discharge. 3. She was advised that she may follow-up with an outpatient neurologist if she feels it would be beneficial. Thank you for allowing us to participate in the care of this patient Time with Patient: Greater than 30 (60 minutes were spent caring for this p atient today including, obtaining history, examining the patient, reviewing imaging, chart documentation, labs, placing orders and creating this note)
[2024-11-24 15:00] VITALS: BP 119/69; PULSE 59; RESP 16; TEMP 98.2
== END 2024-11-24 17:30 | disposition home or self-care (01) ==
LOC: EC 11:50 → SUPCPDRO 11:50 → 6NMEDSUR 13:25
PROVIDERS: ADMIT Internal Medicine; ATTEND Internal Medicine
DX: G45.4 Transient global amnesia (principal); I10 Essential (primary) hypertension; K21.9 Gastro-esophageal reflux disease without esophagitis; I48.91 Unspecified atrial fibrillation; E78.5 Hyperlipidemia, unspecified; E03.9 Hypothyroidism, unspecified; M19.90 Unspecified osteoarthritis, unspecified site; Z86.73 Personal history of transient ischemic attack (TIA), and cerebral infarction without residual deficits; Z79.1 Long term (current) use of non-steroidal anti-inflammatories (NSAID); Z79.01 Long term (current) use of anticoagulants; Z79.890 Hormone replacement therapy; Z79.899 Other long term (current) drug therapy; Z88.0 Allergy status to penicillin
CPT/HCPCS: 96361 ×3; 96360; 99285; 36415; 93005; 80061; 80053; 80048; 85025 ×2; 85610; 85730; 80306; 71046; 93880; 70450; G0378 ×2